=== PATIENT | female | born 1940 | race Caucasian/White ===

== ENCOUNTER 2016-04-29 12:22 | Day surgery (SDC) | payer OTHER ==
--- NOTE | ~2016-04-29 | EGD ---
EGD REPORT [facility] [address] [address] NAME: SALONI TITUS : 40 STATUS : REG [facility]#: [id number] AGE: 75 ADM/REG DATE : 04/29/16 MR#: [id number] REPORT SERV DATE: 04/29/16 DICTATED BY: SOPHIA RUIZ DATE: 04/29/16 REPORT STATUS : Draft [facility] DATE: 04/29/16 Endoscopy Center Patient Name: Saloni Titus Date of : 1940 Attending MD: SOPHIA RUIZ MD Procedure Date No Time: 04/29/2016 Procedure: Colonoscopy Indications: Heme positive stool Referring MD: SPENCER BARNETT Medicines: Monitored Anesthesia Care Complications: No immediate complications. Procedure: Pre-Anesthesia Assessment: - ASA Grade Assessment: III - A patient with severe systemic disease. After I obtained informed consent, the scope was passed under direct vision. Throughout the procedure, the patient's blood pressure, pulse, and oxygen saturations were monitored continuously. The CF [id number] was introduced through the anus and advanced to the transverse colon. The colonoscopy was extremely difficult due to unsatisfactory bowel prep, significant looping, a tortuous colon and the patient's body habitus. Successful completion of the procedure was aided by changing the patient to a supine position and applying abdominal pressure. The patient tolerated the procedure fairly well. The quality of the bowel preparation was poor. Findings: The digital rectal exam was normal. Pertinent negatives include no palpable rectal lesions. Diverticula were found in the sigmoid colon. Three sessile polyps were found in the transverse colon. The polyps were 4 to 6 mm in size. These polyps were removed with a cold snare. Resection and retrieval were complete. Hemorrhoids were found during retroflexion. A moderate amount of stool was found in the sigmoid colon, in the descending colon and in the transverse colon, interfering with visualization. Impression: - Preparation of the colon was poor. - Diverticulosis in the sigmoid colon. - Three 4 to 6 mm polyps in the transverse colon. Resected and retrieved. - Hemorrhoids. EGD REPORT [address] [place]. [address] NAME: SALONI TITUS : 40 [place] [facility] [place] [id number] AGE: 75 ADM/REG DATE : 04/29/16 MR#: [id number] REPORT SERV DATE: 04/29/16 DICTATED BY: SOPHIA RUIZ DATE: 04/29/16 REPORT STATUS : Draft TRANSCRIBED BY: [employer] DATE: 04/29/16 - Stool in the sigmoid colon, in the descending colon and in the transverse colon. Recommendation: - Patient has a contact number available for emergencies. The signs and symptoms of potential delayed complications were discussed with the patient. Return to normal activities tomorrow. Written discharge instructions were provided to the patient. - Regular diet. - Continue present medications. - Await pathology results. - Use constipation prep for next exam. - Repeat colonoscopy at the next available appointment because the bowel preparation was suboptimal. Procedure Code(s): --- Professional --- 15542, 52, Colonoscopy, flexible, proximal to splenic flexure; with removal of tumor(s), polyp(s), or other lesion(s) by snare technique Diagnosis Code(s): --- Professional --- K64.9, Unspecified hemorrhoids K57.30, Diverticulosis of large intestine without perforation or abscess without bleeding D12.3, Benign neoplasm of transverse colon R19.5, Other fecal abnormalities CPT copyright 2013 [employer]. All rights reserved. The codes documented in this report are preliminary and upon doweler review may be revised to meet current compliance requirements. SOPHIA RUIZ MD 04/29/2016 3:51 PM This report has been signed electronically. Number of Addenda: 0 Note Initiated On: 04/29/2016 3:11 PM Scope Withdrawal Time 0 hours 0 minutes 0 seconds [address] [address]
[~2016-04-29 12:22] MED LIST: ASAB PO; BRILINTA90 MG PO; C5 PO; COZ25 PO; CRESTOR20 MG PO; CRESTOR40 MG PO; LOP25 PO; METOPROLOL PO; NITROSTAT0.4 MG SL; PCET PO; PLAVIX PO; PROAIR HFA INH; PROTONIX PO; RAN500 PO; REQUIP1 PO; ROPINIROLE PO; ULTRAM50 PO
[2016-05-14] MEDS ORDERED: NITROQUICK0.4 MG SL (15:20)
[2016-05-14] MEDS ORDERED: L80 PO (15:21)
[2016-05-14] MEDS ORDERED: INCRUSE ELLI62.5 MCG INH (15:24)
== END 2016-04-29 23:59 | disposition home or self-care (01) ==
LOC: DMU 12:22
PROVIDERS: Internal Medicine Gastroenterology
PROC: 0DBL8ZX Excision of Transverse Colon, Via Natural or Artificial Opening Endoscopic, Diagnostic (ICD-10-PCS; principal; 2016-04-29 14:00)
DX: D12.3 Benign neoplasm of transverse colon (principal); K64.9 Unspecified hemorrhoids; K57.30 Diverticulosis of large intestine without perforation or abscess without bleeding; I25.2 Old myocardial infarction; I10 Essential (primary) hypertension; E78.5 Hyperlipidemia, unspecified; J44.9 Chronic obstructive pulmonary disease, unspecified; G47.33 Obstructive sleep apnea (adult) (pediatric); E78.00 Pure hypercholesterolemia, unspecified; I25.10 Atherosclerotic heart disease of native coronary artery without angina pectoris; K21.9 Gastro-esophageal reflux disease without esophagitis; Z88.8 Allergy status to other drugs, medicaments and biological substances; Z79.82 Long term (current) use of aspirin; Z79.899 Other long term (current) drug therapy; Z90.89 Acquired absence of other organs; Z98.51 Tubal ligation status; Z96.651 Presence of right artificial knee joint; Z96.641 Presence of right artificial hip joint; Z98.41 Cataract extraction status, right eye; Z98.42 Cataract extraction status, left eye
CPT/HCPCS: 88305

== ENCOUNTER 2016-05-27 09:33 | Day surgery (SDC) | payer OTHER ==
--- NOTE | ~2016-05-27 | EGD ---
EGD REPORT [facility] [address] [address] NAME: SALONI TITUS : 40 STATUS : REG [facility]#: [id number] AGE: 75 ADM/REG DATE : 05/27/16 MR#: [id number] REPORT SERV DATE: 05/27/16 DICTATED BY: SOPHIA RUIZ DATE: 05/27/16 REPORT STATUS : Draft TRANSCRIBED BY: [facility] DATE: 05/27/16 Endoscopy Center Patient Name: Saloni Titus Date of : 1940 Attending MD: SOPHIA RUIZ MD Procedure Date No Time: 05/27/2016 Procedure: Colonoscopy Indications: Heme positive stool Referring MD: SPENCER BARNETT Medicines: Monitored Anesthesia Care Complications: No immediate complications. Procedure: Pre-Anesthesia Assessment: - ASA Grade Assessment: III - A patient with severe systemic disease. After I obtained informed consent, the scope was passed under direct vision. Throughout the procedure, the patient's blood pressure, pulse, and oxygen saturations were monitored continuously. The CF [id number] was introduced through the anus and advanced to the ascending colon. The colonoscopy was extremely difficult due to multiple diverticula in the colon, significant looping, a tortuous colon and the patient's body habitus. Successful completion of the procedure was aided by applying abdominal pressure. The patient tolerated the procedure well. The quality of the bowel preparation was adequate. Exam was incomplete. Unable to reach cecum. PROCEDURE TIME WAS 33 MINUTES. Findings: The digital rectal exam was normal. Pertinent negatives include no palpable rectal lesions. Hemorrhoids were found during endoscopy and were moderate. Multiple diverticula were found in the sigmoid colon and in the descending colon. A sessile polyp was found in the ascending colon. The polyp was 6 mm in size. The polyp was removed with a cold biopsy forceps. Resection and retrieval were complete. Impression: - Hemorrhoids. - Diverticulosis in the sigmoid colon and in the descending colon. - One 6 mm polyp in the ascending colon. Resected and retrieved. Recommendation: - Patient has a contact number available for EGD REPORT [address] [place]. [address] NAME: SALONI TITUS : 40 [place] [facility] [place] [id number] AGE: 75 ADM/REG DATE : 05/27/16 MR#: [id number] REPORT SERV DATE: 05/27/16 DICTATED BY: SOPHIA RUIZ DATE: 05/27/16 REPORT STATUS : Draft TRANSCRIBED BY: [employer] DATE: 05/27/16 emergencies. The signs and symptoms of potential delayed complications were discussed with the patient. Return to normal activities tomorrow. Written discharge instructions were provided to the patient. - Regular diet. - Await pathology results. - Repeat colonoscopy for surveillance based on pathology results. - Perform a barium enema at the next available appointment. Procedure Code(s): --- Professional --- 09351, 52, Colonoscopy, flexible, proximal to splenic flexure; with biopsy, single or multiple Diagnosis Code(s): --- Professional --- K64.9, Unspecified hemorrhoids K57.30, Diverticulosis of large intestine without perforation or abscess without bleeding D12.2, Benign neoplasm of ascending colon R19.5, Other fecal abnormalities CPT copyright 2013 [employer]. All rights reserved. The codes documented in this report are preliminary and upon artificial foliage arranger review may be revised to meet current compliance requirements. SOPHIA RUIZ MD 05/27/2016 11:46 AM This report has been signed electronically. Number of Addenda: 0 Note Initiated On: 05/27/2016 10:56 AM Scope Withdrawal Time 0 hours 0 minutes 0 seconds [id number] [place] [address]
[~2016-05-27 09:33] MED LIST changes: +INCRUSE ELLI62.5 MCG INH; +L80 PO; +NITROQUICK0.4 MG SL
== END 2016-05-27 23:59 | disposition home health service (06) ==
LOC: DMU 09:33
PROVIDERS: Internal Medicine Gastroenterology
PROC: 0DBK8ZX Excision of Ascending Colon, Via Natural or Artificial Opening Endoscopic, Diagnostic (ICD-10-PCS; principal; 2016-05-27 11:00)
DX: D12.2 Benign neoplasm of ascending colon (principal); K57.30 Diverticulosis of large intestine without perforation or abscess without bleeding; K64.9 Unspecified hemorrhoids; I25.10 Atherosclerotic heart disease of native coronary artery without angina pectoris; J44.9 Chronic obstructive pulmonary disease, unspecified; I10 Essential (primary) hypertension; E78.5 Hyperlipidemia, unspecified; G47.33 Obstructive sleep apnea (adult) (pediatric)
CPT/HCPCS: 88305